=== PATIENT | male | born 1955 | race Hispanic/Latino ===

== ENCOUNTER → 2017-05-21 | Outpatient (CLI) | payer MEDICARE | END | disposition home or self-care (01) | LOC: OIH 11:07 | PROVIDERS: ATTEND Family Medicine | DX: M47.895 Other spondylosis, thoracolumbar region (principal); J20.9 Acute bronchitis, unspecified | CPT/HCPCS: 71046 ==

== ENCOUNTER → 2017-05-28 | Outpatient (CLI) | payer MEDICARE | LOC: RAH 09:37 | PROVIDERS: ATTEND Family Medicine | DX: J20.9 Acute bronchitis, unspecified (principal); K21.9 Gastro-esophageal reflux disease without esophagitis | CPT/HCPCS: 74220 ==